=== PATIENT | female | born 1955 | race Two or more races ===

== ENCOUNTER 2021-05-18 13:59 | Emergency (ER) | payer OTHER, MEDICAID ==
[~2021-05-18] VITALS: Ht 165.1 cm; Wt 96.2 kg
[2021-05-18 15:25] VITALS: BP 125/97
== END 2021-05-18 15:43 | disposition home or self-care (01) ==
LOC: ER 13:59
DX: S00.83XA Contusion of other part of head, initial encounter (principal); S60.211A Contusion of right wrist, initial encounter; S80.11XA Contusion of right lower leg, initial encounter; R51.9 Headache, unspecified; W11.XXXA Fall on and from ladder, initial encounter; Y93.89 Activity, other specified; Y92.89 Other specified places as the place of occurrence of the external cause; Y99.8 Other external cause status
CPT/HCPCS: 70450

== ENCOUNTER 2023-11-14 12:56 | Emergency (ER) | payer OTHER, MEDICAID ==
[~2023-11-14] VITALS: Ht 165.1 cm; Wt 95.0 kg
[2023-11-14] MEDS: KETOROLAC TROMETH 30 MG/ML 1ML VIAL IM ONE (14:22)
[2023-11-14] MEDS: TETANUS-DIPTH-ACEL PERTUSSIS 0.5ML SYR Tdap IM ONE (14:22)
[2023-11-14 14:29] VITALS: BP 143/76; PULSE 76; RESP 16; TEMP 98.6; O2SAT 98
[2023-11-14] MEDS ORDERED: NAP500T PO (14:56)
== END 2023-11-14 15:13 | disposition home or self-care (01) ==
LOC: ER 12:56
DX: S82.62XA Displaced fracture of lateral malleolus of left fibula, initial encounter for closed fracture (principal); S20.211A Contusion of right front wall of thorax, initial encounter; T14.8XXA Other injury of unspecified body region, initial encounter; Z90.89 Acquired absence of other organs; W18.39XA Other fall on same level, initial encounter; Y93.89 Activity, other specified; Y92.89 Other specified places as the place of occurrence of the external cause; Y99.8 Other external cause status
CPT/HCPCS: 71250; 73610; 90471; 90715; 96372; 99285; J1885